=== PATIENT | female | born 1960 | race Caucasian/White ===

== ENCOUNTER 2019-01-05 19:03 | Inpatient (IN) | payer OTHER ==
[2019-01-05] MEDS ORDERED: SODIUM CHLORIDE 0.9% 1,000 ML IV ONE ×2 (19:10)
[2019-01-05] MEDS ORDERED: ONDANSETRON 4 MG/2 ML VIAL IVP STA (19:15)
[2019-01-05] MEDS ORDERED: KETOROLAC 30 MG/ML VIAL IVP STA (19:15)
[2019-01-05] MEDS ORDERED: HYDROmorphone 1 MG/ML CARPUJECT IVP STA (19:15)
[2019-01-05] MEDS ORDERED: ACETAMINOPHEN 325 MG TABLET PO STA (19:15)
[2019-01-05 19:31] LABS: BASOPHILS % (AUTO) 0.2 %; EOSINOPHILS # (AUTO) 0.1 10^3/uL (0.0-0.7); EOSINOPHILS % (AUTO) 0.4 %; HGB - HEMOGLOBIN 12.2 g/dL (12.0-16.0); LYMPHOCYTES % (AUTO) 8.2 %; MEAN CORPUSCULAR HEMOGLOBIN 29.5 pg (27.0-31.0); MEAN CORPUSCULAR VOLUME 84.5 fL (81.0-99.0); MEAN PLATELET VOLUME 8.9 fL (7.9-10.8); MONOCYTES # (AUTO) 0.9 10^3/uL (0.0-1.0); MONOCYTES % (AUTO) 7.4 %; NEUTROPHILS # (AUTO) 10.1 10^3/uL (1.5-6.6); NEUTROPHILS % (AUTO) 83.4 %; PLT - PLATELET COUNT 218 10^3/uL (130-450); RED BLOOD COUNT 4.13 10^6/uL (4.20-5.40); RED CELL DISTRIBUTION WIDTH 13.3 % (12.0-15.0); WHITE BLOOD COUNT 12.1 x10^3/uL (4.8-10.8)
[2019-01-05] MEDS ORDERED: cefTRIAXone 1 GM VIAL IVP STA (19:31)
[2019-01-05 19:42] LABS: ALBUMIN 3.8 g/dL (3.2-5.5); ALBUMIN/GLOBULIN RATIO 1.1 (1.0-2.2); BILIRUBIN,TOTAL 0.4 mg/dL (0.2-1.0); CALCIUM 9.6 mg/dL (8.5-10.3); CREATININE 1.3 mg/dL (0.4-1.0); INR 1.2 (0.8-1.2); PT - PROTHROMBIN TIME 13.4 secs (9.9-12.6); TOTAL PROTEIN 7.4 g/dL (6.7-8.2)
--- NOTE | 2019-01-05 19:45 | ED Physician Documentation ---
PD HPI ABD PAIN - Stated complaint Stated Complaint: RT FLANK PX - Chief complaint Chief Complaint: Abd Pain - History obtained from History obtained from: Patient - History of Present Illness Timing - onset: How many days ago (2-3) Timing - details: Gradual onset Pain level max: 8 Pain level now: 8 Quality: Aching, Pain Location: Other (Right flank) Radiation: No: Chest, , Lower back, Left flank, Left shoulder, Right flank, Right shoulder, Upper back Improved by: Laying still Worsened by: Moving Associated symptoms: Fever, Nausea, Dysuria. No: Vomiting, Hematemesis, Di arrhea, Constipation, Melena, Hematochezia, Hematuria Similar symptoms before: Diagnosis (Has had ureteral stones in the past, has had pyelonephritis in the past. She states she has a known right renal stone but this is in the kidney and has been there for at least a year.) Review of Systems Ten Systems: 10 systems reviewed and negative Constitutional: reports: Fever, Chills Nose: denies: Rhinorrhea / runny nose, Congestion Throat: denies: Sore throat Cardiac: denies: Chest pain / pressure Respiratory: denies: Cough GI: denies: Vomiting, Diarrhea Skin: denies: Rash Musculoskeletal: denies: Neck pain, Back pain Neurologic: denies: Headache PD PAST MEDICAL HISTORY - Past Medical History Past Medical History: Yes Cardiovascular: None Respiratory: None Neuro: None Endocrine/Autoimmune: None GI: None WIRELESS SALES ASSOCIATE: None : Other HEENT: None Psych: Other Musculoskeletal: None Derm: None - Past Surgical History Past Surgical History: Yes General: Other - Present Medications Home Medications: Ambulatory Orders Medication Instructions Recorded Confirmed Alfuzosin HCl [Uroxatral] 10 mg PO 01/05/19 Chlorthalidone 01/05/19 Potassium Chloride 40 meq PO 01/05/19 Venlafaxine [Effexor] 25 mg PO BID 01/05/19 01/05/19 - Allergies Allergies/Adverse Reactions: Allergies Allergy/AdvReac Type Severity Reaction Status Date / Time phenazopyridine Allergy Rash Verified 01/05/19 19:08 [From Pyridium] contrast dye Allergy Rash Uncoded 01/05/19 19:08 - Social History Does the pt smoke?: No Smoking Status: Never smoker Does the pt drink ETOH?: Yes Does the pt have substance abuse?: No - Immunizations Immunizations are current?: Yes - POLST Patient has POLST: No PD ED PE NORMAL - Vitals Vital signs reviewed: Yes - General General: Alert and oriented X 3, No acute distress, Well developed/nourished - HEENT HEENT: PERRL, Moist mucous membranes - Neck Neck: Supple, no meningeal sign - Cardiac Cardiac: RRR, Strong equal pulses - Respiratory Respiratory: No respiratory distress, Clear bilaterally - Abdomen Abdomen: Soft, Non tender, Non distended - Back Back: Other (R CVAT) - Derm Derm: Warm and dry - Extremities Extremities: No edema, No calf tenderness / cord - Neuro Neuro: Alert and oriented X 3 - Psych Psych: Normal mood, Normal affect Results - Vitals Vitals: Vital Signs - 24 hr 01/05/19 01/05/19 01/05/19 19:05 19:50 20:15 Temperature 39.4 C H Heart Rate 112 H 102 H Respiratory 18 17 16 Rate Blood Pressure 134/88 H 133/85 H O2 Saturation 94 96 01/05/19 01/05/19 01/05/19 20:25 20:27 20:59 Temperature 37.0 C Heart Rate 95 94 Respiratory 16 16 16 Rate Blood Pressure 130/79 O2 Saturation 94 96 Oxygen O2 Source Room air - Labs Labs: Laboratory Tests 01/05/19 01/05/19 01/05/19 19:08 19:08 19:08 WBC 12.1 H RBC 4.13 L Hgb 12.2 Hct 34.9 L MCV 84.5 MCH 29.5 MCHC 35.0 RDW 13.3 Plt Count 218 MPV 8.9 Neut # (Auto) 10.1 H Lymph # (Auto) 1.0 L [place] # (Auto) 0.9 Eos # (Auto) 0.1 Baso # (Auto) 0.0 Absolute Nucleated RBC 0.00 Nucleated RBC % 0.0 PT 13.4 H INR 1.2 APTT 26.8 Sodium 135 Potassium 3.0 L Chloride 98 L Carbon Dioxide 26 Anion Gap 11.0 BUN 23 H Creatinine 1.3 H Estimated GFR (MDRD) 42 L Glucose 107 H Lactic Acid Calcium 9.6 Total Bilirubin 0.4 AST 23 ALT 25 Alkaline Phosphatase 76 Total Protein 7.4 Albumin 3.8 Globulin 3.6 Albumin/Globulin Ratio 1.1 Lipase 36 Urine Color Urine Clarity Urine pH Ur Specific [place] Urine Protein Urine Glucose (UA) Urine Ketones Urine Occult Blood Urine Nitrite Urine Bilirubin Urine Urobilinogen Ur Leukocyte Esterase Urine RBC Urine WBC Ur Squamous Epith Cells Urine Bacteria Ur Microscopic Review Urine Culture Comments 01/05/19 01/05/19 19:08 19:45 WBC RBC Hgb Hct MCV MCH MCHC RDW Plt Count MPV Neut # (Auto) Lymph # (Auto) [place] # (Auto) Eos # (Auto) Baso # (Auto) Absolute Nucleated RBC Nucleated RBC % PT INR APTT Sodium Potassium Chloride Carbon Dioxide Anion Gap BUN Creatinine Estimated GFR (MDRD) Glucose Lactic Acid 1.1 Calcium Total Bilirubin AST ALT Alkaline Phosphatase Total Protein Albumin Globulin Albumin/Globulin Ratio Lipase Urine Color YELLOW Urine Clarity HAZY Urine pH 6.0 Ur Specific [place] 1.015 Urine Protein TRACE Urine Glucose (UA) NEGATIVE Urine Ketones NEGATIVE Urine Occult Blood SMALL H Urine Nitrite POSITIVE H Urine Bilirubin NEGATIVE Urine Urobilinogen 0.2 (NORMAL) Ur Leukocyte Esterase MODERATE H Urine RBC 6-10 H Urine WBC >25 H Ur Squamous Epith Cells RARE Squamous Urine Bacteria Many H Ur Microscopic Review INDICATED Urine Culture Comments INDICATED - Rads (name of study) CT abd/pelvis Radiology: Prelim report reviewed, EMP read contemporaneously, See rad report (Bilateral nephrolithiasis without ureterolithiasis) PD MEDICAL DECISION MAKING - ED course Complexity details: reviewed results, re-evaluated patient, considered differential, d/w patient ED course: Patient appears to have pyelonephritis. She is given IV fluids, Toradol, Dilaudid, Zofran. Also given Rocephin. Lactate is normal. She does have a leukocytosis. She is febrile as well. No evidence of ureteral stone. She appears ill and therefore we will place her in the hospital. Discussed the case with the hospitalist, Dr. Curry who accepts. This document was made in part using voice recognition software. While efforts are made to proofread this document, sound alike and grammatical errors may occur. Departure - Departure Disposition: ED Place in Observation Clinical Impression: Pyelonephritis Condition: Stable Discharge Date/Time: 01/05/19 21:45
[2019-01-05 19:50] LABS: PARTIAL THROMBOPLASTIN TIME 26.8 secs (24.9-33.3)
[2019-01-05 19:57] LABS: BILIRUBIN,URINE NEGATIVE (NEGATIVE); GLUCOSE, URINE (UA) NEGATIVE (NEGATIVE); KETONES,URINE (UA) NEGATIVE (NEGATIVE); LEUKOCYTE ESTERASE, URINE MODERATE (NEGATIVE); NITRITE,URINE POSITIVE (NEGATIVE); OCCULT BLOOD,URINE SMALL (NEGATIVE); PROTEIN,URINE TRACE mg/dL (NEGATIVE); UROBILINOGEN,URINE 0.2 (NORMAL) E.U./dL (NORMAL)
[2019-01-05 20:09] LABS: BACTERIA,URINE Many /HPF (None Seen); CLARITY,URINE HAZY (CLEAR); SQUAMOUS EPITHELIAL CELL,UR RARE Squamous (<= Few)
--- NOTE | 2019-01-05 20:56 | CT Report ---
Reason: R flank pain Procedure Date: 01/05/2019 Accession Number: [id number] / [id number] Procedure: CT - Abdomen/Pelvis WO CPT Code: Final Report FULL RESULT: EXAM: CT ABDOMEN AND PELVIS (CT KUB) EXAM DATE: 01/05/2019 08:21 PM. CLINICAL HISTORY: Right flank pain. COMPARISONS: None. TECHNIQUE: Routine axial helical CT imaging was performed through the abdomen and pelvis without IV contrast. Reconstructions: Coronal and sagittal. In accordance with CT protocol optimization, one or more of the following dose reduction techniques were utilized for this exam: automated exposure control, adjustment of mA and/or KV based on patient size, or use of iterative reconstructive technique. FINDINGS: Lung Bases: Unremarkable. Right Kidney/Ureter: Lateral 4.7 cm cyst. Posterior nonobstructing 7 mm cortical calcification with associated parenchymal scarring. Additional intrarenal calcifications up to 8 mm size. No ureteral stones or obstruction. Left Kidney/Ureter: Nonobstructing 3 mm intrarenal stone. No ureteral stones, hydronephrosis, or hydroureter. No perinephric fat stranding. Other Solid Organs: Noncontrast images of the solid organs are grossly unremarkable. Gallbladder/Bile Ducts: Unremarkable. Peritoneal Cavity: No free fluid, free air or micaela adenopathy. Mobile cecum, lying in the anterior mid abdomen, otherwise the bowel is grossly unremarkable. Pelvic Organs: No bladder stones or wall thickening. Noncontrast images of the visualized pelvic organs are unremarkable. Vasculature: Unremarkable. Other: None. IMPRESSION: Bilateral nephrolithiasis, mainly on the right, with no ureteral stones or obstruction. RADIA
--- NOTE | 2019-01-05 21:32 | HISTORY & PHYSICAL EXAMINATION ---
Chief Complaint - Chief Complaint Chief Complaint: Right flank pain and fever History of Present Illness - Admitted From Admitted From:: Home - History Obtained From Records Reviewed: Yes History obtained from: Patient, ER Physician, EMR - History of Present Illness HPI Comment/Other: This is a 58-year-old female with a past medical history significant for recurrent nephrolithiasis and pyelonephritis/urinary tract infections who presents today complaining of right flank pain and fever. She states the past few days she has felt achy all over and malaise. Today she noticed her right flank was bothering her and this is what usually occurs when she has pyelonephritis. She went to work today and measured her temperature and is greater than 39. She reports no dysuria, urgency, frequency but she states she never has these symptoms when she has Pyelonephritis or a urinary tract infection. Hospitalized multiple times for this including for severe sepsis and shock requiring multiple pressors. She states her last infection was back in 2016. She does see a urologist in [place]. She is no longer on chronic suppressive therapy because of C. difficile in the past. She has had multiple lithotripsies and cystoscopies as well as stent placements. Her last stent was in 2016 as well. She states her first kidney stone occurred at the age of 7. She is on chlorthalidone as her prior stones were calcium oxalate. She is also on alfuzosin to help with bladder emptying. She reports no abdominal pain but this can have nausea. She is unable to tolerate oral intake. Denies rash or weakness. In the emergency department, presented febrile with temperature of 39.4 and tachycardic with a heart rate of 112. She was normotensive. White count is 12.1 with a left shift. BMP is unremarkable except for potassium of 3.0 and a creatinine of 1.3. Lactic acid is normal. Urinalysis reveals greater than 25 WBCs, many bacteria, moderate leukocyte esterase, positive nitrite. He underwent a CT the abdomen pelvis which did show stones in her left and right kidneys but no ureteral or obstructing stone. Given her presenting symptoms, she will be admitted for further management. Of note I did discuss goals of care with the patient and she would like to be a full code. History - Past Medical History Cardiovascular: reports: None Respiratory: reports: None Neuro: reports: None Endocrine/Autoimmune: reports: None GI: reports: None GLOBAL CATEGORY MANAGER: reports: None : reports: Kidney stones, Other (Recurrent pyelonephritis/urinary tract inf ection.) HEENT: reports: None Psych: reports: Other Musculoskeletal: reports: None Derm: reports: None MRSA Hx?: No - Past Surgical History /GLOBAL CATEGORY MANAGER: reports: Other (Lithotripsy, cystoscopy, ureteral stent placement) - Family & Social History Family History Comment/Other: Reports her children also have chronic renal issues. Her mother had hypertension and hypothyroidism. One of her aunts had recurrent kidney problems as well. Living arrangement: At home Social History Notes: She is employed as a travel nurse and works emergency department. She is a non-smoker. She is alcohol socially. She currently lives in [place] but has been here for the past couple of months working. - Substance History Use: Uses substance without health or social issues: NONE - POLST Patient has POLST: No Meds/Allgy - Home Medications Home Medications: Ambulatory Orders Medication Instructions Recorded Confirmed Alfuzosin HCl [Uroxatral] 10 mg PO 01/05/19 Chlorthalidone 01/05/19 Potassium Chloride 40 meq PO 01/05/19 Venlafaxine [Effexor] 25 mg PO BID 01/05/19 01/05/19 - Allergies Allergies/Adverse Reactions: Allergies Allergy/AdvReac Type Severity Reaction Status Date / Time phenazopyridine Allergy Rash Verified 01/05/19 19:08 [From Pyridium] contrast dye Allergy Rash Uncoded 01/05/19 19:08 Review of Systems - Constitutional Constitutional: reports: Fatigue, Fever, Chills, Malaise, Weakness, Poor appetite - Cardiovascular Cariovascular: denies: Chest pain, Lightheadedness - Respiratory Respiratory: denies: SOB at rest, SOB with exertion - Gastrointestinal Gastrointestinal: reports: Nausea. denies: Abdominal pain, Vomiting - Genitourinary Genitourinary: reports: Flank pain. denies: Dysuria, Frequency, Urgency - Musculoskeletal Musculoskeletal: denies: Muscle weakness - Integumentary Integumentary: denies: Rash - Neurological Neurological: reports: General weakness. denies: Focal weakness, Dizziness, Numbness Prior Level of Functionality: She is independent with ADLs. Exam - Vital Signs Reviewed Vital Signs: Yes Vital Signs: Vital Signs x48h Temp Pulse Resp BP Pulse Ox 01/05/19 20:59 37.0 C 94 16 96 01/05/19 20:27 95 16 130/79 94 01/05/19 20:25 16 01/05/19 20:15 16 01/05/19 19:50 102 H 17 133/85 H 96 01/05/19 19:05 39.4 C H 112 H 18 134/88 H 94 - Physical Exam General Appearance: positive: No acute distress, Alert Eyes Bilateral: positive: Normal inspection ENT: positive: ENT inspection nml Neck: positive: Nml inspection Respiratory: positive: No respiratory distress. negative: Wheezes, Rales, Rhonchi Cardiovascular: positive: Regular rate & rhythm, No murmur, Tachycardia. negative: Systolic murmur, Diastolic murmur Abdomen: positive: Non-tender, No distention. negative: Tenderness, Guarding, Rebound Back: positive: CVA tenderness (R) (Mild.). negative: CVA tenderness (L) Skin: positive: Color nml, No rash, Warm, Dry Extremities: positive: No pedal edema Neurologic/Psychiatric: positive: Oriented x3, Motor nml. negative: Disoriented to person, Disoriented to place, Disoriented to time, Weakness Sepsis Event Note (H) - Evaluation Current Stage of Sepsis: Sepsis Possible source of Sepsis: positive: Genitourinary - Sepsis Criteria Sepsis Criteria: Recorded Temperature greater than 38.3C or Less than 36C, Recorded Heart Rate greater than 90 bpm, WBC count greater than 12,000 or less than 4000 Conclusion/Plan - Problem List (1) Sepsis Conclusion/Plan: Sepsis appears to be secondary to pyelonephritis. She presented with fever, tachycardia, elevated white count with left shift. Worsening she is not hypotensive and her lactic acid is normal. Her urinalysis is suggestive of infection. CT did not reveal an obstructing ureteral stone. We will continue IV ceftriaxone and follow-up urine culture and blood culture. Continue IV hydration. Check CBC in the morning. (2) Pyelonephritis Conclusion/Plan: Has history of recurrent pyelonephritis and urinary tract infections. Her urinalysis is suggestive of infection. She cannot recall which antibiotics have worked for her in the past that she has been on many different ones. Given she appears clinically improved, will continue ceftriaxone IV. Will hold off on vancomycin for enterococcus coverage as the last stent she had was nearly 4 years ago. If she spikes another fever, will broaden her antibiotics to cefepime and vancomycin. (3) Acute kidney injury Conclusion/Plan: She is not sure what her baseline creatinine is but states is usually elevated when she has pyelonephritis. Her creatinine is currently 1.3 and suspect this is acute kidney injury secondary to prerenal injury as she appears dehydrated. We will continue IV hydration and recheck her BMP in the morning. Continue to monitor her urine output. Avoid NSAIDs. (4) Renal stones Conclusion/Plan: This is chronic for her and she is on chlorthalidone given her stones were calcium oxalate in the past. Fortunately these are nonobstructing stones. Will use Tylenol and morphine IV as needed for pain control. (5) Hypokalemia Conclusion/Plan: This is chronic for her and she is on potassium replacement at home. This may be secondary to her chlorthalidone use. We will continue 40 mg of potassium daily. (6) Depression Conclusion/Plan: Stable. We will continue her home Effexor dose. - Lab Results Lab results reviewed: Yes Fish Bones: 01/05/19 19:08 01/05/19 19:08 - Diagnostic Imaging Results Diagnostic Imaging Results: positive: Final report reviewed Core Measures - Anticipated LOS I expect patient to be DC'd or transferred within 96 hours.: Yes - Issues Hospital Issues and Management Plan: Sepsis secondary to pyelonephritis requiring IV antibiotics and IV hydration. - DVT/VTE - Prophylaxis VTE/DVT Device ordered at admit?: Yes VTE/DVT Prophylaxis med ordered at admit?: Yes
[2019-01-05] MEDS ORDERED: POTASSIUM CHLORIDE 20 MEQ TABLET PO STA (21:42)
[2019-01-05] MEDS: LACTATED RINGERS 1,000 ML IV SCH (22:16)
[2019-01-06] MEDS: ACETAMINOPHEN 325 MG TABLET PO PRN ×4 (02:09→18:19)
[2019-01-06] MEDS: SODIUM CHLORIDE FLUSH 0.9% 10 ML SYRINGE IVP SCH ×3 (02:12→18:21)
[2019-01-06] MEDS: MORPHINE 2 MG/ML CARPUJECT IVP PRN ×2 (02:18→04:26)
[2019-01-06] MEDS ORDERED: ONDANSETRON 4 MG/2 ML VIAL IVP PRN (04:00)
[2019-01-06] MEDS ORDERED: LACTATED RINGERS 1,000 ML IV ONE (04:27)
[2019-01-06] MEDS ORDERED: VANCOMYCIN PER PHARMACY 100 GM in SODIUM CHLORIDE 0.9% 250 ML IV SCH (05:00)
[2019-01-06] MEDS: MEROPENEM 1 GM in SODIUM CHLORIDE 0.9% MINIBAG 100 ML IV SCH ×3 (05:08→21:21)
[2019-01-06 05:26] LABS: CALCIUM 8.2 mg/dL (8.5-10.3); CREATININE 1.4 mg/dL (0.4-1.0); MAGNESIUM 1.5 mg/dL (1.7-2.8)
[2019-01-06 05:33] LABS: BASOPHILS % (AUTO) 0.1 %; EOSINOPHILS % (AUTO) 0.1 %; HGB - HEMOGLOBIN 10.2 g/dL (12.0-16.0); LYMPHOCYTES # (AUTO) 0.7 10^3/uL (1.5-3.5); LYMPHOCYTES % (AUTO) 8.2 %; MEAN CORPUSCULAR HGB CONC 33.6 g/dL (32.0-36.0); MEAN CORPUSCULAR VOLUME 86.4 fL (81.0-99.0); MONOCYTES # (AUTO) 0.5 10^3/uL (0.0-1.0); MONOCYTES % (AUTO) 6.3 %; NEUTROPHILS % (AUTO) 84.7 %; PLT - PLATELET COUNT 186 10^3/uL (130-450); RED BLOOD COUNT 3.52 10^6/uL (4.20-5.40); RED CELL DISTRIBUTION WIDTH 13.7 % (12.0-15.0); WHITE BLOOD COUNT 8.3 x10^3/uL (4.8-10.8)
--- NOTE | 2019-01-06 05:52 | PROVIDER PROGRESS NOTE ---
Subjective - Prog Note Date Prog Note Date: 01/06/19 - Subjective Subjective: She is complaining of more right flank pain this morning. Still feels nauseous but has not had vomiting. She was febrile again overnight at 39.1. She is also tachycardic but denies palpitations. Current Medications - Current Medications Current Medications: Active Medications Acetaminophen (Tylenol) 650 mg PO Q4HR PRN PRN Reason: Pain or Fever > 38C (100.4F) Last Admin: 01/06/19 02:09 Dose: 650 mg Enoxaparin Sodium (Lovenox) 40 mg SUBQ DAILY [facility] Lactated Ringer's (Lr) 1,000 mls @ 100 mls/hr IV .Q10H [facility] Last Admin: 01/05/19 22:16 Dose: 100 mls/hr Meropenem 1 gm/ Sodium (Chloride) 100 mls @ 200 mls/hr IV Q8H [facility] Last Admin: 01/06/19 05:08 Dose: 200 mls/hr Vancomycin HCl 100 gm/ Sodium (Chloride) 250 mls @ 167 mls/hr IV Q400H [facility] Last Admin: 01/06/19 05:32 Dose: Not Given Vancomycin HCl 1 gm/ Sodium (Chloride) 250 mls @ 250 mls/hr IV Q18H [facility] Magnesium Oxide (Mag Ox) 800 mg PO ONCE [facility] Morphine Sulfate (Morphine (Carpuject)) 2 mg IVP Q2HR PRN PRN Reason: Pain 8 to 10 Last Admin: 01/06/19 04:26 Dose: 2 mg Ondansetron HCl (Zofran Inj) 4 mg IVP Q6HR PRN PRN Reason: Nausea / Vomiting Last Admin: 01/06/19 04:31 Dose: 4 mg Potassium Chloride (K-Dur) 40 meq PO DAILYWM [facility] Sodium Chloride (Normal Saline Flush 0.9%) 10 ml IVP PRN PRN PRN Reason: NEEDED PER PROVIDER ORDERS Sodium Chloride (Normal Saline Flush 0.9%) 10 ml IVP 0100,0900,1700 [facility] Last Admin: 01/06/19 02:12 Dose: 10 ml Tamsulosin HCl (Flomax) 0.4 mg PO DAILY [facility] Venlafaxine HCl (Effexor Er) 150 mg PO DAILY [facility] Alfuzosin HCl [Uroxatral] 10 mg PO 01/05/19 Chlorthalidone 11/29/19 Potassium Chloride 40 meq PO 01/05/19 Venlafaxine [Effexor] 25 mg PO BID 01/05/19 Objective - Vital Signs/Intake & Output Reviewed Vital Signs: Yes Vital Signs: Vital Signs x48h Temp Pulse Resp BP Pulse Ox 01/06/19 05:05 37.8 C H 01/06/19 03:55 39.1 C H 125 H 20 99/54 L 93 01/06/19 01:00 37.0 C 83 18 114/65 97 01/05/19 22:03 36.9 C 85 16 126/68 97 Intake & Output: Intake & Output 01/03/19 01/04/19 01/05/19 01/06/19 23:59 23:59 23:59 23:59 Intake Total 1445 Balance 1445 - Objective General Appearance: positive: Alert, Mild distress Eyes Bilateral: positive: Normal inspection ENT: positive: ENT inspection nml Neck: positive: Nml inspection Respiratory: positive: No respiratory distress. negative: Wheezes, Rales, Rhonchi Cardiovascular: positive: No murmur, Tachycardia. negative: Bradycardia, Systolic murmur, Diastolic murmur Abdomen: positive: Non-tender, No distention. negative: Tenderness, Guarding, Rebound Skin: positive: No rash, Warm, Dry Extremities: positive: Full ROM Neurologic/Psychiatric: positive: Oriented x3. negative: Disoriented to person, Disoriented to place, Disoriented to time - Lab Results Fish Bones: 01/06/19 04:55 01/06/19 04:55 Other Labs: Lab Results x24hrs 01/06/19 01/06/19 01/05/19 Range/Units 04:55 04:55 19:45 WBC 8.3 (4.8-10.8) x10^3/uL RBC 3.52 L (4.20-5.40) 10^6/uL Hgb 10.2 L (12.0-16.0) g/dL Hct 30.4 L (37.0-47.0) % MCV 86.4 (81.0-99.0) fL MCH 29.0 (27.0-31.0) pg MCHC 33.6 (32.0-36.0) g/dL RDW 13.7 (12.0-15.0) % Plt Count 186 (130-450) 10^3/uL MPV 9.0 (7.9-10.8) fL Neut # (Auto) 7.0 H (1.5-6.6) 10^3/uL Lymph # (Auto) 0.7 L (1.5-3.5) 10^3/uL [place] # (Auto) 0.5 (0.0-1.0) 10^3/uL Eos # (Auto) 0.0 (0.0-0.7) 10^3/uL Baso # (Auto) 0.0 (0.0-0.1) 10^3/uL Absolute Nucleated RBC 0.00 x10^3/uL Nucleated RBC % 0.0 /100WBC PT (9.9-12.6) secs INR (0.8-1.2) APTT (24.9-33.3) secs Sodium 137 (135-145) mmol/L Potassium 3.2 L (3.5-5.0) mmol/L Chloride 102 (101-111) mmol/L Carbon Dioxide 27 (21-32) mmol/L Anion Gap 8.0 (6-13) BUN 27 H (6-20) mg/dL Creatinine 1.4 H (0.4-1.0) mg/dL Estimated GFR (MDRD) 39 L (>89) Glucose 103 H (70-100) mg/dL Lactic Acid (0.5-2.2) mmol/L Calcium 8.2 L (8.5-10.3) mg/dL Magnesium 1.5 L (1.7-2.8) mg/dL Total Bilirubin (0.2-1.0) mg/dL AST (10-42) IU/L ALT (10-60) IU/L Alkaline Phosphatase (42-121) IU/L Total Protein (6.7-8.2) g/dL Albumin (3.2-5.5) g/dL Globulin (2.1-4.2) g/dL Albumin/Globulin Ratio (1.0-2.2) Lipase (22-51) U/L Urine Color YELLOW Urine Clarity HAZY (CLEAR) Urine pH 6.0 (5.0-7.5) PH Ur Specific [place] 1.015 (1.002-1.030) Urine Protein TRACE (NEGATIVE) mg/dL Urine Glucose (UA) NEGATIVE (NEGATIVE) mg/dL Urine Ketones NEGATIVE (NEGATIVE) mg/dL Urine Occult Blood SMALL H (NEGATIVE) Urine Nitrite POSITIVE H (NEGATIVE) Urine Bilirubin NEGATIVE (NEGATIVE) Urine Urobilinogen 0.2 (NORMAL) (NORMAL) E.U./dL Ur Leukocyte Esterase MODERATE H (NEGATIVE) Urine RBC 6-10 H (0-5) /HPF Urine WBC >25 H (0-5) /HPF Ur Squamous Epith Cells RARE Squamous (<= Few) Urine Bacteria Many H (None Seen) /HPF Ur Microscopic Review INDICATED Urine Culture Comments INDICATED 01/05/19 01/05/19 01/05/19 Range/Units 19:08 19:08 19:08 WBC (4.8-10.8) x10^3/uL RBC (4.20-5.40) 10^6/uL Hgb (12.0-16.0) g/dL Hct (37.0-47.0) % MCV (81.0-99.0) fL MCH (27.0-31.0) pg MCHC (32.0-36.0) g/dL RDW (12.0-15.0) % Plt Count (130-450) 10^3/uL MPV (7.9-10.8) fL Neut # (Auto) (1.5-6.6) 10^3/uL Lymph # (Auto) (1.5-3.5) 10^3/uL [place] # (Auto) (0.0-1.0) 10^3/uL Eos # (Auto) (0.0-0.7) 10^3/uL Baso # (Auto) (0.0-0.1) 10^3/uL Absolute Nucleated RBC x10^3/uL Nucleated RBC % /100WBC PT 13.4 H (9.9-12.6) secs INR 1.2 (0.8-1.2) APTT 26.8 (24.9-33.3) secs Sodium 135 (135-145) mmol/L Potassium 3.0 L (3.5-5.0) mmol/L Chloride 98 L (101-111) mmol/L Carbon Dioxide 26 (21-32) mmol/L Anion Gap 11.0 (6-13) BUN 23 H (6-20) mg/dL Creatinine 1.3 H (0.4-1.0) mg/dL Estimated GFR (MDRD) 42 L (>89) Glucose 107 H (70-100) mg/dL Lactic Acid 1.1 (0.5-2.2) mmol/L Calcium 9.6 (8.5-10.3) mg/dL Magnesium (1.7-2.8) mg/dL Total Bilirubin 0.4 (0.2-1.0) mg/dL AST 23 (10-42) IU/L ALT 25 (10-60) IU/L Alkaline Phosphatase 76 (42-121) IU/L Total Protein 7.4 (6.7-8.2) g/dL Albumin 3.8 (3.2-5.5) g/dL Globulin 3.6 (2.1-4.2) g/dL Albumin/Globulin Ratio 1.1 (1.0-2.2) Lipase 36 (22-51) U/L Urine Color Urine Clarity (CLEAR) Urine pH (5.0-7.5) PH Ur Specific [place] (1.002-1.030) Urine Protein (NEGATIVE) mg/dL Urine Glucose (UA) (NEGATIVE) mg/dL Urine Ketones (NEGATIVE) mg/dL Urine Occult Blood (NEGATIVE) Urine Nitrite (NEGATIVE) Urine Bilirubin (NEGATIVE) Urine Urobilinogen (NORMAL) E.U./dL Ur Leukocyte Esterase (NEGATIVE) Urine RBC (0-5) /HPF Urine WBC (0-5) /HPF Ur Squamous Epith Cells (<= Few) Urine Bacteria (None Seen) /HPF Ur Microscopic Review Urine Culture Comments 01/05/19 Range/Units 19:08 WBC 12.1 H (4.8-10.8) x10^3/uL RBC 4.13 L (4.20-5.40) 10^6/uL Hgb 12.2 (12.0-16.0) g/dL Hct 34.9 L (37.0-47.0) % MCV 84.5 (81.0-99.0) fL MCH 29.5 (27.0-31.0) pg MCHC 35.0 (32.0-36.0) g/dL RDW 13.3 (12.0-15.0) % Plt Count 218 (130-450) 10^3/uL MPV 8.9 (7.9-10.8) fL Neut # (Auto) 10.1 H (1.5-6.6) 10^3/uL Lymph # (Auto) 1.0 L (1.5-3.5) 10^3/uL [place] # (Auto) 0.9 (0.0-1.0) 10^3/uL Eos # (Auto) 0.1 (0.0-0.7) 10^3/uL Baso # (Auto) 0.0 (0.0-0.1) 10^3/uL Absolute Nucleated RBC 0.00 x10^3/uL Nucleated RBC % 0.0 /100WBC PT (9.9-12.6) secs INR (0.8-1.2) APTT (24.9-33.3) secs Sodium (135-145) mmol/L Potassium (3.5-5.0) mmol/L Chloride (101-111) mmol/L Carbon Dioxide (21-32) mmol/L Anion Gap (6-13) BUN (6-20) mg/dL Creatinine (0.4-1.0) mg/dL Estimated GFR (MDRD) (>89) Glucose (70-100) mg/dL Lactic Acid (0.5-2.2) mmol/L Calcium (8.5-10.3) mg/dL Magnesium (1.7-2.8) mg/dL Total Bilirubin (0.2-1.0) mg/dL AST (10-42) IU/L ALT (10-60) IU/L Alkaline Phosphatase (42-121) IU/L Total Protein (6.7-8.2) g/dL Albumin (3.2-5.5) g/dL Globulin (2.1-4.2) g/dL Albumin/Globulin Ratio (1.0-2.2) Lipase (22-51) U/L Urine Color Urine Clarity (CLEAR) Urine pH (5.0-7.5) PH Ur Specific [place] (1.002-1.030) Urine Protein (NEGATIVE) mg/dL Urine Glucose (UA) (NEGATIVE) mg/dL Urine Ketones (NEGATIVE) mg/dL Urine Occult Blood (NEGATIVE) Urine Nitrite (NEGATIVE) Urine Bilirubin (NEGATIVE) Urine Urobilinogen (NORMAL) E.U./dL Ur Leukocyte Esterase (NEGATIVE) Urine RBC (0-5) /HPF Urine WBC (0-5) /HPF Ur Squamous Epith Cells (<= Few) Urine Bacteria (None Seen) /HPF Ur Microscopic Review Urine Culture Comments - Diagnostic Imaging Diagnostic Imaging Results: positive: Final report reviewed ABX Reporting Has patient been on IV antibiotics over the past 48 hours?: Yes Sepsis Event Note (H) - Evaluation Current Stage of Sepsis: Sepsis Possible source of Sepsis: positive: Genitourinary - Sepsis Criteria Sepsis Criteria: Recorded Temperature greater than 38.3C or Less than 36C, Recorded Heart Rate greater than 90 bpm, WBC count greater than 12,000 or less than 4000 Assessment/Plan - Problem List (1) Sepsis Impression: This is secondary to pyelonephritis. She initially presented with fever, tachycardia, elevated white count with left shift. Her leukocytosis has since resolved but she remains febrile and her tachycardia is more severe this morning. Given her worsening tachycardia and fever despite improving white count, will broaden her antibiotics to vancomycin and meropenem IV. We will follow-up her urine cultures and blood cultures. (2) Pyelonephritis Impression: She has history of recurrent pyelonephritis and urinary tract infections. Her urinalysis this admission is suggestive of infection. Her CT the abdomen pelvis did not reveal an obstructing stone. Given her continued fever and worsening tachycardia, will broaden antibiotics to meropenem and vancomycin IV. (3) Acute kidney injury Impression: Creatinine is a little more elevated today at 1.4. Is unclear what her baseline is but suspect this is acute kidney injury. She did receive Toradol in the ER yesterday which may be contributing to her dysfunction. We will continue with IV hydration. We will continue to avoid NSAIDs. (4) Renal stones Impression: He has bilateral renal stones which are chronic in nature. She is on chlorthalidone as prior stones were calcium oxalate. Her pain has been poorly controlled with Tylenol and morphine IV. We will increase the dose of her morphine and consider changing to Dilaudid if need be. (5) Hypokalemia Impression: This is chronic and she is on potassium supplementation at home. We will continue 40 mEq of potassium daily (6) Depression Impression: Stable. Continue her home Effexor.
[2019-01-06] MEDS ORDERED: MORPHINE 2 MG/ML CARPUJECT IVP PRN (05:57)
[2019-01-06] MEDS ORDERED: VANCOMYCIN INJ 1.25 GM in SODIUM CHLORIDE 0.9% 500 ML IV SCH (06:00)
[2019-01-06] MEDS ORDERED: VANCOMYCIN INJ 1 GM in SODIUM CHLORIDE 0.9% 250 ML IV SCH (06:00)
[2019-01-06] MEDS ORDERED: MAGNESIUM OXIDE 400 MG TABLET PO SCH (06:00)
[2019-01-06] MEDS: LACTATED RINGERS 1,000 ML IV SCH ×2 (07:25→15:25)
[2019-01-06] MEDS: POTASSIUM CHLORIDE 20 MEQ TABLET PO SCH (08:32)
[2019-01-06] MEDS: VENLAFAXINE ER 75 MG CAPSULE PO SCH (08:33)
[2019-01-06] MEDS: TAMSULOSIN 0.4 MG CAPSULE PO SCH (08:33)
[2019-01-06] MEDS: ENOXAPARIN 40 MG/0.4 ML SYRINGE SUBQ SCH (08:34)
[2019-01-06] MEDS ORDERED: cefTRIAXone 1 GM in SODIUM CHLORIDE 0.9% MINIBAG 100 ML IV SCH (09:00)
[2019-01-06] MEDS: VANCOMYCIN INJ 1 GM in SODIUM CHLORIDE 0.9% 250 ML IV SCH (18:15)
[2019-01-06] MEDS: oxyCODONE 5 MG TABLET PO PRN (18:53)
[2019-01-06] MEDS: SODIUM CHLORIDE FLUSH 0.9% 10 ML SYRINGE IVP PRN (21:26)
[2019-01-07] MEDS: ACETAMINOPHEN 325 MG TABLET PO PRN ×3 (00:52→18:18)
[2019-01-07] MEDS: SODIUM CHLORIDE FLUSH 0.9% 10 ML SYRINGE IVP SCH ×3 (00:55→18:21)
[2019-01-07] MEDS: LACTATED RINGERS 1,000 ML IV SCH ×2 (04:33→18:14)
[2019-01-07] MEDS: MEROPENEM 1 GM in SODIUM CHLORIDE 0.9% MINIBAG 100 ML IV SCH ×3 (04:33→21:00)
[2019-01-07 04:50] LABS: EOSINOPHILS # (AUTO) 0.1 10^3/uL (0.0-0.7); EOSINOPHILS % (AUTO) 1.5 %; HGB - HEMOGLOBIN 9.9 g/dL (12.0-16.0); LYMPHOCYTES # (AUTO) 0.5 10^3/uL (1.5-3.5); LYMPHOCYTES % (AUTO) 7.8 %; MEAN CORPUSCULAR HEMOGLOBIN 28.2 pg (27.0-31.0); MEAN CORPUSCULAR HGB CONC 32.5 g/dL (32.0-36.0); MEAN CORPUSCULAR VOLUME 86.9 fL (81.0-99.0); MEAN PLATELET VOLUME 8.9 fL (7.9-10.8); MONOCYTES # (AUTO) 0.4 10^3/uL (0.0-1.0); MONOCYTES % (AUTO) 6.8 %; NEUTROPHILS # (AUTO) 5.2 10^3/uL (1.5-6.6); NEUTROPHILS % (AUTO) 83.6 %; PLT - PLATELET COUNT 156 10^3/uL (130-450); RED BLOOD COUNT 3.51 10^6/uL (4.20-5.40); RED CELL DISTRIBUTION WIDTH 13.8 % (12.0-15.0); WHITE BLOOD COUNT 6.2 x10^3/uL (4.8-10.8)
[2019-01-07 04:55] LABS: MAGNESIUM 1.5 mg/dL (1.7-2.8)
[2019-01-07] MEDS: VANCOMYCIN INJ 1 GM in SODIUM CHLORIDE 0.9% 250 ML IV SCH (05:50)
--- NOTE | 2019-01-07 08:23 | PROVIDER PROGRESS NOTE ---
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 So she was up all night last night. Is uncomfortable with her left mid abdomen but no real pain. No diarrhea. No emesis. She was still having fever and tachycardia yesterday. T-max yesterday was 39.1. This morning her temperature is 38.9 T-max around 1 in the morning. Right now with this note dictation she is 36.8. White cell count remains normal since yesterday. Blood and urine cultures are growing gram-negative bacilli Current Medications - Current Medications Current Medications: Active Medications Acetaminophen (Tylenol) 650 mg PO Q4HR PRN PRN Reason: Pain or Fever > 38C (100.4F) Last Admin: 01/07/19 00:52 Dose: 650 mg Enoxaparin Sodium (Lovenox) 40 mg SUBQ DAILY [facility] Last Admin: 01/06/19 08:34 Dose: Not Given Lactated Ringer's (Lr) 1,000 mls @ 100 mls/hr IV .Q10H [facility] Last Admin: 01/07/19 04:33 Dose: 100 mls/hr Meropenem 1 gm/ Sodium (Chloride) 100 mls @ 200 mls/hr IV Q8H [facility] Last Infusion: 01/07/19 05:26 Dose: Infused Vancomycin HCl 1 gm/ Sodium (Chloride) 250 mls @ 166.667 mls/hr IV Q12H [facility] Last Infusion: 01/07/19 07:20 Dose: Infused Morphine Sulfate (Morphine (Carpuject)) 4 mg IVP Q2HR PRN PRN Reason: Pain 8 to 10 Last Admin: 01/06/19 06:45 Dose: 4 mg Ondansetron HCl (Zofran Inj) 4 mg IVP Q6HR PRN PRN Reason: Nausea / Vomiting Last Admin: 01/06/19 04:31 Dose: 4 mg Oxycodone HCl (Roxicodone) 5 mg PO Q4HR PRN PRN Reason: PAIN Last Admin: 01/06/19 18:53 Dose: 5 mg Potassium Chloride (K-Dur) 40 meq PO DAILYWM [facility] Last Admin: 01/06/19 08:32 Dose: 40 meq Sodium Chloride (Normal Saline Flush 0.9%) 10 ml IVP PRN PRN PRN Reason: NEEDED PER PROVIDER ORDERS Last Admin: 01/06/19 21:26 Dose: 10 ml Sodium Chloride (Normal Saline Flush 0.9%) 10 ml IVP 0100,0900,1700 [facility] Last Admin: 01/07/19 00:55 Dose: 10 ml Tamsulosin HCl (Flomax) 0.4 mg PO DAILY [facility] Last Admin: 01/06/19 08:33 Dose: 0.4 mg Venlafaxine HCl (Effexor Er) 150 mg PO DAILY [facility] Last Admin: 01/06/19 08:33 Dose: 150 mg Alfuzosin HCl [Uroxatral] 10 mg PO DAILY 01/05/19 Chlorthalidone 25 mg PO DAILY 01/05/19 Potassium Chloride 40 meq PO DAILY 01/05/19 Venlafaxine HCl [Venlafaxine HCl ER] 150 mg PO DAILY 01/06/19 Objective - Vital Signs/Intake & Output Reviewed Vital Signs: Yes Vital Signs: Vital Signs x48h Temp Pulse Resp BP Pulse Ox 01/07/19 07:43 36.8 C 72 16 118/77 98 01/07/19 04:31 36.9 C 75 16 127/79 96 01/07/19 02:26 37.4 C 91 18 107/69 92 01/07/19 00:40 38.9 C H 102 H 18 132/77 H 93 Intake & Output: Intake & Output 01/04/19 01/05/19 01/06/19 01/07/19 23:59 23:59 23:59 23:59 Intake Total 1445 5546.666 1118.334 Balance 1445 5546.666 1118.334 - Objective General Appearance: positive: No acute distress, Alert Eyes Bilateral: positive: PERRL, EOMI Neck: positive: No JVD Respiratory: positive: Chest non-tender. negative: Wheezes, Rales, Rhonchi Cardiovascular: positive: Regular rate & rhythm. negative: Gallop/S4, Friction rub Abdomen: positive: Non-tender (At this time. Last night, before a left shift, she was still having some grimacing left mid abdominal pain with palpation. This morning she is not.), No organomegaly, Nml bowel sounds, No distention Skin: positive: Warm, Dry Extremities: positive: Non-tender, Full ROM, Nml appearance Neurologic/Psychiatric: positive: Oriented x3, CN's nml (2-12), Motor nml - Lab Results Fish Bones: 01/07/19 04:25 01/07/19 04:25 Other Labs: Lab Results x24hrs 01/07/19 01/07/19 Range/Units 04:25 04:25 WBC 6.2 (4.8-10.8) x10^3/uL RBC 3.51 L (4.20-5.40) 10^6/uL Hgb 9.9 L (12.0-16.0) g/dL Hct 30.5 L (37.0-47.0) % MCV 86.9 (81.0-99.0) fL MCH 28.2 (27.0-31.0) pg MCHC 32.5 (32.0-36.0) g/dL RDW 13.8 (12.0-15.0) % Plt Count 156 (130-450) 10^3/uL MPV 8.9 (7.9-10.8) fL Neut # (Auto) 5.2 (1.5-6.6) 10^3/uL Lymph # (Auto) 0.5 L (1.5-3.5) 10^3/uL [place] # (Auto) 0.4 (0.0-1.0) 10^3/uL Eos # (Auto) 0.1 (0.0-0.7) 10^3/uL Baso # (Auto) 0.0 (0.0-0.1) 10^3/uL Absolute Nucleated RBC 0.00 x10^3/uL Nucleated RBC % 0.0 /100WBC Sodium 133 L (135-145) mmol/L Potassium 3.1 L (3.5-5.0) mmol/L Chloride 98 L (101-111) mmol/L Carbon Dioxide 27 (21-32) mmol/L Anion Gap 8.0 (6-13) BUN 19 (6-20) mg/dL Creatinine 1.0 (0.4-1.0) mg/dL Estimated GFR (MDRD) 57 L (>89) Glucose 112 H (70-100) mg/dL Calcium 8.0 L (8.5-10.3) mg/dL Magnesium 1.5 L (1.7-2.8) mg/dL ABX Reporting Has patient been on IV antibiotics over the past 48 hours?: Yes Sepsis Event Note (H) - Evaluation Current Stage of Sepsis: Resolved Possible source of Sepsis: positive: Genitourinary - Sepsis Criteria Sepsis Criteria: Recorded Temperature greater than 38.3C or Less than 36C, Recorded Heart Rate greater than 90 bpm, WBC count greater than 12,000 or less than 4000 Assessment/Plan - Problem List (1) Sepsis Impression: Resolved. This is secondary to pyelonephritis. She initially presented with fever, tachycardia, elevated white count with left shift. Her leukocytosis has since resolved but she remained febrile with tachycardia yesterday and still with temp at 01:00 this am. Since she had worsening tachycardia and fever despite impro ving white count, her antibiotics were broadened to vancomycin and meropenem IV 01/06. We will follow-up her urine cultures and blood cultures. Right now it's GNB in urine and blood. (2) Pyelonephritis Impression: She has history of recurrent pyelonephritis and urinary tract infections. Her urinalysis this admission is suggestive of infection. Her CT the abdomen pelvis did not reveal an obstructing stone. Given her continued fever and worsening tachycardia, antibiotics broadened to meropenem and vancomycin IV. (3) Acute kidney injury Impression: Creatinine is a little more elevated today at 1.4. Is unclear what her baseline is but suspect this is acute kidney injury. She did receive Toradol in the ER yesterday which may be contributing to her dysfunction. We will continue with IV hydration. We will continue to avoid NSAIDs. Today she is better. 1.3>1.4>1.0 (4) Renal stones Impression: She has bilateral renal stones which are chronic in nature. She is on chlorthalidone as prior stones were calcium oxalate. Her pain had been poorly controlled with Tylenol and morphine IV. We increased the dose of her morphine and consider changing to Dilaudid if need be. But with the increased dose of MS she did well yesterday. No changes today. (5) Hypokalemia Impression: This is chronic and she is on potassium supplementation at home. We will continue 40 mEq of potassium daily but will also give another dose at noon since she is 3 this am. (6) Depression Impression: Stable. Continue her home Effexor.
[2019-01-07] MEDS: TAMSULOSIN 0.4 MG CAPSULE PO SCH (08:55)
[2019-01-07] MEDS: ENOXAPARIN 40 MG/0.4 ML SYRINGE SUBQ SCH (08:55)
[2019-01-07] MEDS: VENLAFAXINE ER 75 MG CAPSULE PO SCH (08:55)
[2019-01-07] MEDS: POTASSIUM CHLORIDE 20 MEQ TABLET PO SCH (08:56)
[2019-01-07] MEDS ORDERED: POTASSIUM CHLORIDE 20 MEQ TABLET PO ONE (12:00)
[2019-01-07] MEDS: DOCUSATE SODIUM 250 MG CAPSULE PO SCH (13:31)
[2019-01-07] MEDS: SENNA 8.6 MG TABLET PO SCH (13:31)
[2019-01-07] MEDS: POLYETHYLENE GLYCOL 3350 17 GM PACKET PO SCH (13:32)
[2019-01-08] MEDS: SODIUM CHLORIDE FLUSH 0.9% 10 ML SYRINGE IVP SCH ×3 (01:22→16:22)
[2019-01-08] MEDS: oxyCODONE 5 MG TABLET PO PRN (02:45)
[2019-01-08] MEDS: ACETAMINOPHEN 325 MG TABLET PO PRN (02:45)
[2019-01-08] MEDS: LACTATED RINGERS 1,000 ML IV SCH ×3 (02:53→21:20)
[2019-01-08] MEDS: MEROPENEM 1 GM in SODIUM CHLORIDE 0.9% MINIBAG 100 ML IV SCH ×3 (05:51→21:21)
[2019-01-08] MEDS: SODIUM CHLORIDE FLUSH 0.9% 10 ML SYRINGE IVP PRN ×2 (05:56→06:26)
[2019-01-08 06:09] LABS: BASOPHILS % (AUTO) 0.2 %; EOSINOPHILS # (AUTO) 0.1 10^3/uL (0.0-0.7); EOSINOPHILS % (AUTO) 1.5 %; HGB - HEMOGLOBIN 10.2 g/dL (12.0-16.0); LYMPHOCYTES # (AUTO) 1.2 10^3/uL (1.5-3.5); LYMPHOCYTES % (AUTO) 26.1 %; MEAN CORPUSCULAR HEMOGLOBIN 29.7 pg (27.0-31.0); MEAN CORPUSCULAR HGB CONC 34.5 g/dL (32.0-36.0); MEAN PLATELET VOLUME 8.9 fL (7.9-10.8); MONOCYTES # (AUTO) 0.6 10^3/uL (0.0-1.0); NEUTROPHILS # (AUTO) 2.7 10^3/uL (1.5-6.6); NEUTROPHILS % (AUTO) 58.8 %; PLT - PLATELET COUNT 184 10^3/uL (130-450); RED BLOOD COUNT 3.44 10^6/uL (4.20-5.40); RED CELL DISTRIBUTION WIDTH 13.2 % (12.0-15.0); WHITE BLOOD COUNT 4.6 x10^3/uL (4.8-10.8)
[2019-01-08 06:19] LABS: CALCIUM 8.4 mg/dL (8.5-10.3); CREATININE 0.8 mg/dL (0.4-1.0); MAGNESIUM 1.6 mg/dL (1.7-2.8)
[2019-01-08] MEDS ORDERED: traZODone 50 MG TABLET PO PRN (06:55)
--- NOTE | 2019-01-08 07:36 | PROVIDER PROGRESS NOTE ---
Subjective - Prog Note Date Prog Note Date: 01/08/19 Prog Note Time: 10:13 - Subjective Pt reports feeling: Improved Subjective: asleep but wakens easily. no fever since 15:30 yesterday. no cp, no sob, no abd pain Current Medications - Current Medications Current Medications: Active Medications Acetaminophen (Tylenol) 650 mg PO Q4HR PRN PRN Reason: Pain or Fever > 38C (100.4F) Last Admin: 01/08/19 02:45 Dose: 650 mg Docusate Sodium (Colace 250mg Capsule) 250 - 500 mg PO DAILY [facility] Last Admin: 01/07/19 13:31 Dose: 250 mg Enoxaparin Sodium (Lovenox) 40 mg SUBQ DAILY [facility] Last Admin: 01/07/19 08:55 Dose: 40 mg Lactated Ringer's (Lr) 1,000 mls @ 100 mls/hr IV .Q10H [facility] Last Infusion: 01/08/19 06:21 Dose: 100 mls/hr Meropenem 1 gm/ Sodium (Chloride) 100 mls @ 200 mls/hr IV Q8H [facility] Last Infusion: 01/08/19 06:21 Dose: Infused Morphine Sulfate (Morphine (Carpuject)) 4 mg IVP Q2HR PRN PRN Reason: Pain 8 to 10 Last Admin: 01/06/19 06:45 Dose: 4 mg Ondansetron HCl (Zofran Inj) 4 mg IVP Q6HR PRN PRN Reason: Nausea / Vomiting Last Admin: 01/06/19 04:31 Dose: 4 mg Oxycodone HCl (Roxicodone) 5 mg PO Q4HR PRN PRN Reason: PAIN Last Admin: 01/08/19 02:45 Dose: 5 mg Polyethylene Glycol (Miralax) 17 gm PO DAILY [facility] Last Admin: 01/07/19 13:32 Dose: 17 gm Potassium Chloride (K-Dur) 40 meq PO BIDWM [facility] Senna (Senokot) 8.6 - 17.2 mg PO DAILY [facility] Last Admin: 01/07/19 13:31 Dose: 8.6 mg Sodium Chloride (Normal Saline Flush 0.9%) 10 ml IVP PRN PRN PRN Reason: NEEDED PER PROVIDER ORDERS Last Admin: 01/08/19 06:26 Dose: 10 ml Sodium Chloride (Normal Saline Flush 0.9%) 10 ml IVP 0100,0900,1700 [facility] Last Admin: 01/08/19 01:22 Dose: Not Given Tamsulosin HCl (Flomax) 0.4 mg PO DAILY [facility] Last Admin: 01/07/19 08:55 Dose: 0.4 mg Trazodone HCl (Desyrel) 50 mg PO QPM PRN PRN Reason: Insomnia Venlafaxine HCl (Effexor Er) 150 mg PO DAILY [facility] Last Admin: 01/07/19 08:55 Dose: 150 mg Alfuzosin HCl [Uroxatral] 10 mg PO DAILY 01/05/19 Chlorthalidone 25 mg PO DAILY 01/05/19 Potassium Chloride 40 meq PO DAILY 01/05/19 Venlafaxine HCl [Venlafaxine HCl ER] 150 mg PO DAILY 01/06/19 Objective - Vital Signs/Intake & Output Reviewed Vital Signs: Yes Vital Signs: Vital Signs x48h Temp Pulse Resp BP Pulse Ox 01/08/19 05:47 36.9 C 70 16 128/79 95 01/08/19 01:38 36.4 C L 01/07/19 23:50 37 C 69 20 138/87 H 98 Intake & Output: Intake & Output 01/05/19 01/06/19 01/07/19 01/08/19 23:59 23:59 23:59 23:59 Intake Total 1445 5546.666 4335.667 1113.334 Balance 1445 5546.666 4335.667 1113.334 - Objective General Appearance: positive: No acute distress, Alert, Other (white female, looks stated age, tired) ENT: positive: Pharynx nml Neck: positive: No JVD. negative: Stiff neck Respiratory: positive: Chest non-tender. negative: Wheezes, Rales, Rhonchi Cardiovascular: positive: Regular rate & rhythm. negative: Gallop/S4, Friction rub Abdomen: positive: Non-tender, No organomegaly, Nml bowel sounds, No distention Skin: positive: Warm, Dry Extremities: positive: Non-tender, No pedal edema Neurologic/Psychiatric: positive: Oriented x3, CN's nml (2-12), Motor nml, Sensation nml - Lab Results Fish Bones: 01/08/19 06:04 01/08/19 06:04 Other Labs: Lab Results x24hrs 01/08/19 01/08/19 Range/Units 06:04 06:04 WBC 4.6 L (4.8-10.8) x10^3/uL RBC 3.44 L (4.20-5.40) 10^6/uL Hgb 10.2 L (12.0-16.0) g/dL Hct 29.6 L (37.0-47.0) % MCV 86.0 (81.0-99.0) fL MCH 29.7 (27.0-31.0) pg MCHC 34.5 (32.0-36.0) g/dL RDW 13.2 (12.0-15.0) % Plt Count 184 (130-450) 10^3/uL MPV 8.9 (7.9-10.8) fL Neut # (Auto) 2.7 (1.5-6.6) 10^3/uL Lymph # (Auto) 1.2 L (1.5-3.5) 10^3/uL [place] # (Auto) 0.6 (0.0-1.0) 10^3/uL Eos # (Auto) 0.1 (0.0-0.7) 10^3/uL Baso # (Auto) 0.0 (0.0-0.1) 10^3/uL Absolute Nucleated RBC 0.00 x10^3/uL Nucleated RBC % 0.0 /100WBC Sodium 140 (135-145) mmol/L Potassium 3.4 L (3.5-5.0) mmol/L Chloride 104 (101-111) mmol/L Carbon Dioxide 29 (21-32) mmol/L Anion Gap 7.0 (6-13) BUN 14 (6-20) mg/dL Creatinine 0.8 (0.4-1.0) mg/dL Estimated GFR (MDRD) 74 L (>89) Glucose 106 H (70-100) mg/dL Calcium 8.4 L (8.5-10.3) mg/dL Magnesium 1.6 L (1.7-2.8) mg/dL ABX Reporting Has patient been on IV antibiotics over the past 48 hours?: Yes Sepsis Event Note (H) - Evaluation Current Stage of Sepsis: Resolved Possible source of Sepsis: positive: Genitourinary Confirmed Source and Organism (if known) of Sepsis: E coli Sepsis Associated Organ Dysfunction: RUPINDER - Sepsis Criteria Sepsis Criteria: Recorded Temperature greater than 38.3C or Less than 36C, Recorded Heart Rate greater than 90 bpm, WBC count greater than 12,000 or less t [place] 4000 Assessment/Plan - Problem List (1) Pyelonephritis Impression: She initially presented with fever, tachycardia, elevated white count with left shift and met criteria for sepsis. Her leukocytosis has since resolved but she remained febrile with tachycardia yesterday and still with temp. She has history of recurrent pyelonephritis and urinary tract infections. Her urinalysis this admission is suggestive of infection. Her CT the abdomen pelvis did not reveal an obstructing stone. Since she had worsening tachycardia and fever despite improving white count, her antibiotics were broadened to vancomycin and meropenem IV 01/06. Urine culture is positive for pansensitive E coli so Vancomycin stopped yesterday. She also has bacteremia with E coli that is also pansensitive. She still had a fever to 38 on 01/07 in ~15:00. None since. Will wait for her to be afebrile for 24 hours before transitioning to po. (2) Acute kidney injury resolved. Impression: Creatinine is a little more elevated day after admission. Is unclear what her baseline is but suspect this is acute kidney injury. She did receive Toradol in the ER yesterday which may be contributing to her dysfunction. We will continue with IV hydration. We will continue to avoid NSAIDs. Creatinnine 1.3>1.4>1.0>0.8 today (3) Renal stones Impression: She has bilateral renal stones which are chronic in nature. She is on chlorthalidone as prior stones were calcium oxalate. Her pain had been poorly controlled with Tylenol and morphine IV. We increased the dose of her morphine and consider changing to Dilaudid if need be. But with the increased dose of MS she did well yesterday. No changes for 2 days now. Pain is controlled or gone. (4) Hypokalemia Impression: This is chronic and she is on potassium supplementation at home. We will continue 40 mEq of potassium daily but has also required another dose at noon since the single daily dose wasn't enough Continue to monitor (5) Depression Impression: Stable. Continue her home Effexor.
[2019-01-08] MEDS: ENOXAPARIN 40 MG/0.4 ML SYRINGE SUBQ SCH ×2 (09:18→09:27)
[2019-01-08] MEDS: POTASSIUM CHLORIDE 20 MEQ TABLET PO SCH ×2 (09:19→16:44)
[2019-01-08] MEDS: POLYETHYLENE GLYCOL 3350 17 GM PACKET PO SCH (09:19)
[2019-01-08] MEDS: VENLAFAXINE ER 75 MG CAPSULE PO SCH (09:19)
[2019-01-08] MEDS: DOCUSATE SODIUM 250 MG CAPSULE PO SCH (09:19)
[2019-01-08] MEDS: TAMSULOSIN 0.4 MG CAPSULE PO SCH (09:19)
[2019-01-08] MEDS: SENNA 8.6 MG TABLET PO SCH (09:19)
[2019-01-08] MEDS: MAGNESIUM OXIDE 400 MG TABLET PO SCH (12:07)
[2019-01-08] MEDS ORDERED: PSEUDOEPHEDRINE 30 MG TABLET PO PRN (16:52)
[2019-01-08] MEDS: cefUROXime axetil 250 MG TABLET PO SCH (22:48)
[2019-01-09] MEDS: ACETAMINOPHEN 325 MG TABLET PO PRN (00:11)
[2019-01-09] MEDS: SODIUM CHLORIDE FLUSH 0.9% 10 ML SYRINGE IVP SCH ×2 (00:58→08:56)
[2019-01-09 05:41] LABS: CALCIUM 9.2 mg/dL (8.5-10.3); CREATININE 0.7 mg/dL (0.4-1.0)
[2019-01-09] MEDS: LACTATED RINGERS 1,000 ML IV SCH (08:36)
[2019-01-09] MEDS: POTASSIUM CHLORIDE 20 MEQ TABLET PO SCH (09:22)
[2019-01-09] MEDS: POLYETHYLENE GLYCOL 3350 17 GM PACKET PO SCH (09:22)
[2019-01-09] MEDS: SENNA 8.6 MG TABLET PO SCH (09:23)
[2019-01-09] MEDS: DOCUSATE SODIUM 250 MG CAPSULE PO SCH (09:23)
[2019-01-09] MEDS: cefUROXime axetil 250 MG TABLET PO SCH (09:23)
[2019-01-09] MEDS: TAMSULOSIN 0.4 MG CAPSULE PO SCH (09:23)
[2019-01-09] MEDS: VENLAFAXINE ER 75 MG CAPSULE PO SCH (09:24)
[2019-01-09] MEDS: MAGNESIUM OXIDE 400 MG TABLET PO SCH (09:24)
[2019-01-09 11:10] VITALS: BP 137/101
--- NOTE | 2019-01-09 12:55 | Discharge Plan ---
Discharge Plan Problem Reviewed?: Yes Disposition: Home, Self Care Condition: Stable Prescriptions: cefUROXime axetil [Ceftin] 500 mg PO BID #12 tablet Diet: Regular Activity Restrictions: Activity as Tolerated Shower Restrictions: No (fall precaution) Instruction Topics: Cefuroxime tablets Health Concerns: UTI, acute kidney injury Plan of Treatment: you are prescribed antibiotics to finish the treatment course. advise you may keep hydration, take antibiotics as the schedule, followup urologist as out-pt. Care Goals: stabilization and improvement of your medical conditions. Assessment: discussed with you about the care plan, you understood that. Additional Instructions or Follow Up instructions: you may followup your PCP in one week, may followup urologist as out-pt. Should your symptoms return or worsen, you may present ER or call 911 for help. No Smoking: If you smoke, Please STOP! Call for help.
--- NOTE | 2019-01-09 13:23 | DISCHARGE SUMMARY ---
Discharge Summary Admit Date: 01/05/19 Discharge Date: 01/09/19 Discharging Provider: FRANCISCO J PRABHAKAR Condition at Discharge: Stable Discharge Disposition: 01 Home, Self Care Discharge Facility Name: home - DIAGNOSES Admission Diagnoses: (1) Sepsis (2) Pyelonephritis (3) Acute kidney injury (4) Renal stones (5) Hypokalemia (6) Depression Discharge Diagnoses with Status of Each Condition: (1) Sepsis resolved. pt had fever, tachycardia, elevated WBC in the admission. (2) Pyelonephritis stable. pt is prescribed antibiotics Ceftin to finish the treatment course. UA culture reveals positive for Ecoli (3) Acute kidney injury resolved. advise pt keep hydration (4) Renal stones stable. pt has no complaint or micaela pain (5) Hypokalemia resolved (6) Depression stable (7)Bactermia resolved. One tube of blood culture is positive for Ecoli. Second time blood culture is negative for bacteremia. pt is prescribed Ceftin to finish the treatment course. - HPI History of Present Illness: refer from Dr. Curry's HPI on 01/05/19 This is a 58-year-old female with a past medical history significant for r ecurrent nephrolithiasis and pyelonephritis/urinary tract infections who presents today complaining of right flank pain and fever. She states the past few days she has felt achy all over and malaise. Today she noticed her right flank was bothering her and this is what usually occurs when she has p yelonephritis. She went to work today and measured her temperature and is greater than 39. She reports no dysuria, urgency, frequency but she states she never has these symptoms when she has Pyelonephritis or a urinary tract infection. Hospitalized multiple times for this including for severe sepsis and shock requiring multiple pressors. She states her last infection was back in 2016. She does see a urologist in [place]. She is no longer on chronic suppressive therapy because of C. difficile in the past. She has had multiple lithotripsies and cystoscopies as well as stent placements. Her last stent was in 2016 as well. She states her first kidney stone occurred at the age of 7. She is on chlorthalidone as her prior stones were calcium oxalate. She is also on alfuzosin to help with bladder emptying. She reports no abdominal pain but this can have nausea. She is unable to tolerate oral intake. Denies rash or weakness. In the emergency department, presented febrile with temperature of 39.4 and tachycardic with a heart rate of 112. She was normotensive. White count is 12.1 with a left shift. BMP is unremarkable except for potassium of 3.0 and a creatinine of 1.3. Lactic acid is normal. Urinalysis reveals greater than 25 WBCs, many bacteria, moderate leukocyte esterase, positive nitrite. He underwent a CT the abdomen pelvis which did show stones in her left and right kidneys but no ureteral or obstructing stone. Given her presenting symptoms, she will be admitted for further management. Of note I did discuss goals of care with the patient and she would like to be a full code. - HOSPITAL COURSE Hospital Course: pt was admitted for fever, and right micaela pain. CT of abdomen reveals bilateral nephrolithiasis, mainly on right , but no ureteral stones or obstruction. pt was found to have UTI with pyelonephritis and possible bacteremia on one tube blood culture. UA culture and blood culture reveals positive for Ecoli. after pt was treated with antibiotics, pt has no more fever over 48 hours, second blood culture is negative, pt has no more abdominal or micaela pain. The detail hospital course is the below. (1) Sepsis resolved. pt had fever, tachycardia, elevated WBC in the admission. (2) Pyelonephritis stable. pt is prescribed antibiotics Ceftin to finish the treatment course. UA culture reveals positive for Ecoli (3) Acute kidney injury resolved. advise pt keep hydration (4) Renal stones stable. pt has no complaint or micaela pain (5) Hypokalemia resolved (6) Depression stable (7)Bactermia resolved. One tube of blood culture is positive for Ecoli. Second time blood culture is negative for bacteremia. pt is prescribed Ceftin to finish the treatment course. - ALLERGIES Allergies/Adverse Reactions: Allergies Allergy/AdvReac Type Severity Reaction Status Date / Time phenazopyridine Allergy Rash Verified 01/05/19 19:08 [From Pyridium] contrast dye Allergy Rash Uncoded 01/05/19 19:08 - MEDICATIONS Home Medications: Ambulatory Orders Medication Instructions Recorded Confirmed Alfuzosin HCl [Uroxatral] 10 mg PO DAILY 01/05/19 01/06/19 Chlorthalidone 25 mg PO DAILY 01/05/19 01/06/19 Potassium Chloride 40 meq PO DAILY 01/05/19 01/06/19 Venlafaxine HCl [Venlafaxine HCl 150 mg PO DAILY 01/06/19 01/06/19 ER] cefUROXime axetil [Ceftin] 500 mg PO BID #12 tablet 01/09/19 - PHYSICAL EXAM AT DISCHARGE General Appearance: positive: No acute distress, Alert. negative: Lethargic Eyes Bilateral: positive: Normal inspection, PERRL, EOMI, No lid inflammation ENT: positive: ENT inspection nml, Pharynx nml, No signs of dehydration. negative: Purulent nasal drainage Neck: positive: Nml inspection, Thyroid nml, No JVD, Trachea midline. negative: Thyromegaly, Lymphadenopathy (R), Lymphadenopathy (L), Stiff neck, Tracheal deviation Respiratory: positive: Chest non-tender, No respiratory distress, Breath sounds nml. negative: Wheezes, Rales, Rhonchi Cardiovascular: positive: Regular rate & rhythm, No murmur, No gallop. negative: Irregularly irregular, Extrasystoles, Tachycardia, Bradycardia, JVD present, Systolic murmur, Diastolic murmur Peripheral Pulses: positive: 2+ Abdomen: positive: Non-tender, No organomegaly, Nml bowel sounds, No distention. negative: Tenderness, Guarding, Rebound Back: positive: Nml inspection. negative: CVA tenderness (R), CVA tenderness (L) Skin: positive: Color nml, No rash, Warm, Dry. negative: Cyanosis, Diaphoresis, Pallor Extremities: positive: Non-tender, Full ROM, Nml appearance. negative: Calf tenderness, Marbin's sign/cords Neurologic/Psychiatric: positive: Oriented x3, Motor nml, Sensation nml, Mood/affect nml. negative: Weakness, Sensory loss, Facial droop, Slurred/abnml speech, Depressed mood/affect - LABS Result Diagrams: 01/08/19 06:04 01/09/19 04:50 - SEPSIS Current Stage of Sepsis: Resolved Possible source of Sepsis: Genitourinary Sepsis Criteria: Recorded Temperature greater than 38.3C or Less than 36C, Recorded Heart Rate greater than 90 bpm, WBC count greater than 12,000 or less than 4000 - FOLLOW UP Follow Up: you are prescribed antibiotics to finish the treatment course. advise you may keep hydration, take antibiotics as the schedule, followup urologist as out-pt. you may followup your PCP in one week, may followup urologist as out-pt. Should your symptoms return or worsen, you may present ER or call 911 for help. - TIME SPENT Time Spent in Discharge (Minutes): 45
== END 2019-01-09 14:20 | disposition home or self-care (01) | DRG 872 ==
LOC: ED 19:03 → MS2 21:05 → OBSVTOIN 01-06 05:56
PROVIDERS: ADMIT Internal Medicine; ATTEND Nurse Practitioner Gerontology
DX: A41.51 Sepsis due to Escherichia coli [E. coli] (principal); N12 Tubulo-interstitial nephritis, not specified as acute or chronic; N17.9 Acute kidney failure, unspecified; N20.0 Calculus of kidney; E87.6 Hypokalemia; F32.9 Major depressive disorder, single episode, unspecified; Z87.442 Personal history of urinary calculi; Z87.440 Personal history of urinary (tract) infections
CPT/HCPCS: 36415; 74176; 80048; 80053; 81001; 83605; 83690; 83735; 85025; 85610; 85730; 87040; 87077; 87086; 87181; 96361; 96374; 96375; 96376; 99285; A9270; G0378; J1170; J1650; J2185; J3370; J7120; 80202; 81003